=== PATIENT | male | born 1990 | race Caucasian/White ===

== ENCOUNTER → 2017-04-25 | Outpatient (CLI) | payer OTHER ==
[2017-04-25 13:55] LABS: BASOPHILS # (AUTO) 0.1 X10^3/uL (0.0-0.1); BASOPHILS % (AUTO) 0.8 % (0.2-1.0); EOSINOPHILS # (AUTO) 0.1 x10^3/uL (0.0-0.2); EOSINOPHILS % (AUTO) 1.3 % (0.9-2.9); HEMOGLOBIN 15.8 g/dL (13.5-18.0); LYMPHOCYTES # (AUTO) 2.3 X10^3/uL (1.3-2.9); LYMPHOCYTES % (AUTO) 33.6 % (21.0-51.0); MEAN CORPUSCULAR HGB CONC 35.8 g/dL (33.0-35.0); MEAN PLATELET VOLUME 8.6 fL (7.4-11.0); MONOCYTES # (AUTO) 0.7 x10^3/uL (0.3-0.8); MONOCYTES % (AUTO) 9.5 % (0.0-13.0); NEUTROPHILS # (AUTO) 3.8 x10^3/uL (2.2-4.8); NEUTROPHILS % (AUTO) 54.8 % (42.0-75.0); PLATELET COUNT 240 X10^3/uL (150.0-450.0); RED BLOOD COUNT 5.43 X10^6/uL (4.7-6.0); RED CELL DISTRIBUTION WIDTH 12.8 % (11.6-16.5); WHITE BLOOD COUNT 6.9 X10^3/uL (3.6-10.0)
[2017-04-25 14:06] LABS: BILIRUBIN,URINE NEGATIVE (NEGATIVE); BLOOD/HEMOGLOBIN,URINE NEGATIVE (NEGATIVE); GLUCOSE, URINE NEGATIVE (NEGATIVE); KETONES,URINE NEGATIVE (NEGATIVE); LEUKOCYTE ESTERASE ,URINE NEGATIVE (NEGATIVE); NITRITES,URINE NEGATIVE (NEGATIVE); PH,URINE 6.5 (5.0 - 8.0); PROTEIN,URINE NEGATIVE (NEGATIVE); UROBILINOGEN,URINE NORMAL (NORMAL)
[2017-04-25 14:17] LABS: ALANINE AMINOTRANSFERASE 71 Units/L (12-78); ALBUMIN 4.5 g/dL (3.4-5.0); ALKALINE PHOSPHATASE 64 Units/L (46-116); ASPARTATE AMINO TRANSFERASE 29 Units/L (15-37); BLOOD UREA NITROGEN 12 mg/dL (7-18); C-REACTIVE PROTEIN < 0.50 mg/L (0-3.0); CALCIUM 9.1 mg/dL (8.5-10.1); CARBON DIOXIDE 26.6 mmol/L (21-32); CHLORIDE 103 mmol/L (98-107); CREATININE 1.14 mg/dL (0.70-1.30); SODIUM 139 mmol/L (136-145); TOTAL PROTEIN 7.6 g/dL (6.4-8.2); eGFR BLACK RACES > 60 (>60); eGFR NON BLACK RACES > 60 (>60)
[2017-04-25 14:19] LABS: APPEARANCE,URINE CLEAR (CLEAR); COLOR,URINE YELLOW (YELLOW); RBC,URINE 0-2 /HPF (NEGATIVE); SQUAMOUS EPITHELIAL CELL,UR NEGATIVE /HPF (NEGATIVE)
[2017-04-25 14:20] LABS: BACTERIA,URINE NEGATIVE /HPF (NEGATIVE)
--- NOTE | 2017-04-25 14:21 | RAD ---
Examination: Chest, PA and lateral views History: Preop Findings: Normal appearance of heart, lungs, mediastinum and pleural spaces. Impression: Normal chest Reported By:
[2017-04-25 14:25] LABS: ERYTHROCYTE SEDIMENTATION RATE 2 MM/HOUR (0-15)
== END ==
LOC: LAB 13:19
PROVIDERS: ATTEND Orthopaedic Surgery
DX: Z01.818 Encounter for other preprocedural examination (principal); Z01.810 Encounter for preprocedural cardiovascular examination; Z01.811 Encounter for preprocedural respiratory examination; Z79.899 Other long term (current) drug therapy; Z11.8 Encounter for screening for other infectious and parasitic diseases; S93.431A Sprain of tibiofibular ligament of right ankle, initial encounter; X58.XXXA Exposure to other specified factors, initial encounter
CPT/HCPCS: 36415; 71046; 80053; 81001; 85025; 85652; 86140; 87640; 87641; 93005; 93010

== ENCOUNTER 2017-04-27 10:27 | Day surgery (SDC) | payer OTHER ==
[2017-04-27] MEDS ORDERED: D5 LR 1000 ML 1,000 ML IV ONE (10:52)
[2017-04-27] MEDS ORDERED: NS 100 ML IV 100 ML IV ONE (10:53)
[2017-04-27] MEDS ORDERED: ANCEF VIAL 1 GM ONE (10:54)
[2017-04-27] MEDS ORDERED: FENTANYL INJ 250 mcg ONE (12:48)
[2017-04-27] MEDS ORDERED: NS IRRIGATION 1000 ML 1,000 ML with BACITRACIN VIAL 50,000 UNT IR ONE ×2 (13:47)
--- NOTE | 2017-04-27 14:10 | RAD ---
Examination: X-rays of the right tib-fib. Clinical history: Right lower leg fracture, preop. Technique: AP and lateral views of the right tib-fib were obtained. Comparison: None available. Findings: There is an essentially nondisplaced oblique fracture involving the distal diaphysis/metaphysis of th e fibula. No associated angulation of the fracture is noted. No additional bony or soft tissue abnormality is noted. Impression: 1. Fracture of the distal fibula, as described above. Reported By:
[2017-04-27] MEDS ORDERED: XYLOCAINE-MPF 1% ONE (14:17)
[2017-04-27] MEDS ORDERED: MARCAINE 0.25% INJ ONE (14:17)
[2017-04-27] MEDS ORDERED: BACTROBAN OINT ONE (14:27)
[2017-04-27] MEDS ORDERED: DILAUDID INJ IVP PRN (14:46)
[2017-04-27] MEDS ORDERED: BENADRYL INJ 50 MG VIAL IVP PRN (14:46)
[2017-04-27] MEDS ORDERED: REGLAN INJ 10 MG VIAL IVP PRN (14:46)
[2017-04-27] MEDS ORDERED: ZOFRAN INJ 4 MG VIAL IVP PRN (14:46)
[2017-04-27] MEDS ORDERED: PHENERGAN INJ 25 MG IVP PRN (14:46)
[2017-04-27] MEDS ORDERED: NORCO 5/325 MG TAB PO PRN (14:52)
--- NOTE | 2017-04-27 15:00 | RAD ---
Examination: X-rays of the right ankle. Clinical history: Right lower leg fracture, postop ORIF. Technique: Three views of the right ankle were obtained through a cast. Comparison: X-rays of the left tib-fib dated 04/27/2017. Findings: The cast obscures much of the fine bony detail. A previously seen oblique fracture of the distal fibula has now been internally fixated with a latera lly placed metallic plate and multiple screws, with a diastases screw also seen extending into the di stal tibia. The fracture is in near anatomic reduction. Surgical skin frankie are seen at the lateral aspect of the ankle. No additional bony or soft tissue abnormality is noted. Impression: 1. Fracture of the distal fibula, as described above. Reported By:
[2017-04-27] MEDS ORDERED: SUPRANE IN ONE ×2 (15:24→15:46)
[2017-04-27] MEDS ORDERED: ZOFRAN INJ 4 MG VIAL ONE ×3 (15:24→16:07)
[2017-04-27] MEDS ORDERED: VERSED ONE ×2 (15:24→15:46)
[2017-04-27] MEDS ORDERED: NORCURON INJ 10 MG VIAL ONE (15:46)
[2017-04-27] MEDS ORDERED: DIPRIVAN VIAL ONE (15:46)
[2017-04-27] MEDS ORDERED: QUELICIN (OR ANECTINE) ONE (15:46)
[2017-04-27] MEDS ORDERED: XYLOCAINE 2 % (PLAIN) ONE (15:46)
[2017-04-27] MEDS ORDERED: ROBINUL ONE (15:46)
[2017-04-27 17:17] VITALS: BP 141/84
--- NOTE | 2017-05-03 16:14 | OR.GENERIC ---
Post-Op Note Generic - Post-Op Note Operative Report: PREOPERATIVE DIAGNOSIS: RIGHT ankle lateral malleolus fracture. RIGHT ankle syndesmotic disruption POSTOPERATIVE DIAGNOSIS:RIGHT ankle lateral malleolus fracture. RIGHT ankle syndesmotic disruption PROCEDURE PERFORMED: 1.Open reduction and internal fixation of left lateral malleolus. 2. Open reduction and fixation of RIGHT ankle syndesmosis ANESTHESIA: General. TOURNIQUET TIME: 45 minutes. COMPLICATIONS: None. BLOOD LOSS: Negligible. CLOSURE: 2-0 Vicryl and frankie. INDICATIONS FOR SURGERY: This is a young gentleman with workplace injury to his RIGHT ankle and an x-ray showed displaced lateral malleolus fracture with widening of the mortise now for ORIF. He was seen in the office. Natural history and treatment discussions were done with him. complications including but not limited to infection, neurovascular damage, nonunion, malunion, ankle arthritis, ankle stiffnes for further procedure, need for implant removal were discussed with him. He understood and verbalized to same. He consented for the surgery. He was seen in the preop holding area. Limb was marked. Patient would've proper antibiotic. Patient got appropriate block. OPERATIVE PROCEDURE: The patient was taken to the operative room where general anesthesia was successfully introduced. endotracheal intubation was completed successfully.He was placed on a radiolucent table with c-arm from contralateral side, perpendicular to table, monitor at foot of bed. He was placed supine with feet at the end of the bed, bump under hip. The thigh tourniquet was applied but not inflated yet. elevated distal limb with bump. The RIGHT ankle was prepped and draped in standard fashion. An Esmarch tourniquet was used to exsanguinate the ankle. The tourniquet was insufflated to a pressure 325 mm for approximately 45 minutes. An approximately 6-inch longitudinal incision was made just over the lateral malleolus centered on fracture. Care was taken to spare overlying nerves and vessels. An elevator was used to expose the fracture. The fracture was freed of old hematoma and reduced with a reducing bernard clamp. The Fibula was brought to length and rotation was checked and anatomical. An interfragmentary cortical screw was placed of 24 mm with excellent purchase. The intraoperative image showed excellent reduction. A 6-hole Heber VariAx distal fibula plate was then contoured to the lateral malleolus and fixed with 4 2.7 locking screws distally and 4 3.5 mm locking screws proximally. Excellent stability of fracture was achieved. At this time cottons test and stress test for distal syndesmosis was tested and found to be positive. This was confirmed with fluoroscopy. The syndesmosis was reduced with anteroposterior translation of the fibula and it settled into anatomical position. It was held in place with a clamp placed in coronal plane. Reduction was again stressed and it was found to be stable. 1 tricortical screws were placed from the fibula into the tibia through the plate. The clamp was removed and again stress test was done to confirm that the syndesmosis is well reduced. Final fluoroscopy showed a reduction to be anatomic in 2 planes. Tourniquet was deflated and hemostasis was maintained. The wound was irrigated with copious amounts of normal saline. Deep tissue was closed with 2- 0 Vicryl. The skin was approximated with 2-0 Vicryl and closed with frankie. Dry sterile dressing was applied. AO splint with extra padding under heel for immobilization was applied. The patient tolerated the procedure, was awakened and taken to the recovery room in stable condition. Crutches were advised for ambulation with non weight bearing till further advise.
== END 2017-04-27 16:55 | disposition home or self-care (01) ==
LOC: SURG1 10:27
PROVIDERS: ATTEND Orthopaedic Surgery
PROC: 0QSJ04Z Reposition Right Fibula with Internal Fixation Device, Open Approach (ICD-10-PCS; 2017-04-27)
PROC: 0QSJ04Z Reposition Right Fibula with Internal Fixation Device, Open Approach (ICD-10-PCS; principal; 2017-04-27 10:15)
DX: S82.61XA Displaced fracture of lateral malleolus of right fibula, initial encounter for closed fracture (principal); S93.431A Sprain of tibiofibular ligament of right ankle, initial encounter; X58.XXXA Exposure to other specified factors, initial encounter
CPT/HCPCS: 73590; 73610; 76000; A4216; A4222; S0020; J0330; J0690; J1170; J2001; J2250; J2405; J2550; J3010; J3490; J7120